=== PATIENT | male | born 1980 | race Caucasian/White ===

== ENCOUNTER 2022-03-21 14:38 | Emergency (ER) | payer SELFPAY ==
[~2022-03-21] VITALS: Ht 175.3 cm; Wt 83.0 kg
[2022-03-21 14:40] VITALS: BP 105/67
[2022-03-21] MEDS ORDERED: ZIPRASIDONE MESYLATE 20MG/VIAL IM STA (14:52)
[2022-03-21 15:18] LABS: BASOPHILS % 0.5 % (0.0-2.0); EOSINOPHILS % 1.3 % (0.0-5.0); HEMOGLOBIN. 14.1 g/dL (14.0-18.0); LYMPHOCYTES % 27.9 % (20.0-50.0); MEAN CORPUSCULAR HEMOGLOBIN 34.8 pg (28.0-32.0); MEAN CORPUSCULAR VOLUME 99.1 fL (80.0-94.0); MEAN PLATELET VOLUME 6.9 fl (7.4-10.4); MONOCYTES % 7.4 % (2.0-8.0); NEUTROPHILS % 62.9 % (40.0-76.0); PLATELET 306 x1000/uL (130-400); RED BLOOD CELL COUNT 4.04 mill/uL (4.7-6.1); RED CELL DISTRIBUTION WIDTH 13.4 % (11.6-14.6)
[2022-03-21 15:24] LABS: CHLORIDE 105 mEq/L (98-107)
[2022-03-21 15:34] LABS: ETHANOL BLOOD 206 mg/dL
[2022-03-21] MEDS ORDERED: POTASSIUM CHLORIDE 20MEQ TABLET SR PO NR (22:15)
== END 2022-03-21 22:25 | disposition home or self-care (01) ==
LOC: ER 14:42
DX: F10.229 Alcohol dependence with intoxication, unspecified (principal); R44.0 Auditory hallucinations; R45.851 Suicidal ideations; Y90.8 Blood alcohol level of 240 mg/100 ml or more
CPT/HCPCS: 36415; 80053; 80307; 80320; 80329; 85025; 99283; G0480

== ENCOUNTER 2024-09-17 23:04 | Emergency (ER) | payer SELFPAY ==
[~2024-09-17] VITALS: Ht 175.3 cm; Wt 79.0 kg
[2024-09-17 23:10] VITALS: O2SAT 99
[2024-09-17 23:46] LABS: BASOPHILS % 0.6 % (0.0-2.0); EOSINOPHILS % 2.1 % (0.0-5.0); HEMATOCRIT. 37.1 % (42.0-52.0); HEMOGLOBIN. 13.2 g/dL (14.0-18.0); LYMPHOCYTES % 25.7 % (20.0-50.0); MEAN CORPUSCULAR HEMOGLOBIN 35.2 pg (28.0-32.0); MEAN CORPUSCULAR HGB CONC 35.5 g/dL (31.0-37.0); MEAN CORPUSCULAR VOLUME 99.1 fL (80.0-94.0); MEAN PLATELET VOLUME 6.6 fl (7.4-10.4); MONOCYTES % 6.6 % (2.0-8.0); PLATELET 180 x1000/uL (130-400); RED BLOOD CELL COUNT 3.74 mill/uL (4.7-6.1); RED CELL DISTRIBUTION WIDTH 13.3 % (11.6-14.6); WHITE BLOOD COUNT 6.8 x1000/uL (4.5-11.0)
[2024-09-17 23:55] LABS: CHLORIDE 96 mEq/L (98-107); POTASSIUM 3.5 mEq/L (3.5-5.1); SODIUM 132 mEq/L (136-145)
[2024-09-17 23:56] LABS: CARBON DIOXIDE 24 mEq/L (21-32)
[2024-09-17 23:57] LABS: CALCIUM 8.6 mg/dL (8.7-10.4)
[2024-09-18 00:01] LABS: CREATININE 0.6 mg/dL (0.6-1.3); GLUCOSE 93 mg/dL (70-105); UREA NITROGEN BLOOD 5 mg/dL (9-23)
[2024-09-18 00:11] LABS: ETHANOL BLOOD 373 mg/dL (<10)
[2024-09-18 05:20] VITALS: BP 113/62; PULSE 72; RESP 15; TEMP 36.7; O2SAT 99
== END 2024-09-18 05:25 | disposition home or self-care (01) ==
LOC: ER 23:04
DX: T51.0X1A Toxic effect of ethanol, accidental (unintentional), initial encounter (principal); G89.29 Other chronic pain; M25.571 Pain in right ankle and joints of right foot; Y92.89 Other specified places as the place of occurrence of the external cause
CPT/HCPCS: 36415; 73610; 80048; 80320; 85025; 99284; G0480